=== PATIENT | female | born 1995 | race Caucasian/White ===

== ENCOUNTER 2019-08-09 15:29 | Emergency (ER) | payer MEDICAID, OTHER ==
[~2019-08-09] VITALS: Ht 170.2 cm; Wt 72.0 kg
[~2019-08-09 15:29] MED LIST: NO HOME MEDS
[2019-08-09 16:02] LABS: URINE HCG NEGATIVE (NEG)
[2019-08-09 16:10] LABS: CLARITY,URINE SLIGHTLY CLOUDY (Clear); COLOR,URINE YELLOW (Yellow); GLUCOSE, URINE NEGATIVE (Neg); KETONES,URINE NEGATIVE (Neg); LEUKOCYTE ESTERASE ,URINE NEGATIVE (Neg); NITRITES, URINE NEGATIVE (Neg); OCCULT BLOOD,URINE NEGATIVE (Neg); PROTEIN,URINE NEGATIVE (Neg); UROBILINOGEN,URINE 0.2 E.U/dL (0.2-1.0)
[2019-08-09 16:21] LABS: BACTERIA,URINE FEW /HPF (Neg); MUCUS STRANDS FEW /LPF (Neg); RBC,URINE NONE SEEN /HPF (0-2); SQUAMOUS EPITHELIAL CELL,UR MANY /LPF (FEW); UA COLLECTION TYPE CLN CATCH MIDSTREAM; WBC,URINE 0-4 /HPF (0-4)
[2019-08-09] MEDS ORDERED: ketorolac tromethamine 15mg/ml inj. IM ONE (18:05)
[2019-08-09 18:09] VITALS: BP 125/88
[2019-08-09] MEDS ORDERED: CYCL-1 PO (18:35)
[2019-08-09] MEDS ORDERED: IBUP-1984 PO (18:35)
== END 2019-08-09 18:46 | disposition home or self-care (01) ==
LOC: ER 15:29
DX: M54.5 Low back pain (principal); F41.9 Anxiety disorder, unspecified; R35.0 Frequency of micturition; F10.99 Alcohol use, unspecified with unspecified alcohol-induced disorder; F12.90 Cannabis use, unspecified, uncomplicated; R11.0 Nausea; F15.90 Other stimulant use, unspecified, uncomplicated; Z72.89 Other problems related to lifestyle
CPT/HCPCS: 81001; 81025; 96372; 99283; J1885

== ENCOUNTER 2021-08-08 04:20 | Emergency (ER) | payer MEDICAID, OTHER ==
[~2021-08-08] VITALS: Ht 170.2 cm; Wt 74.2 kg
[~2021-08-08 04:20] MED LIST changes: +CYCL-1 PO
[2021-08-08 04:29] VITALS: BP 133/96
[2021-08-08 04:56] LABS: URINE HCG NEGATIVE (NEG)
[2021-08-08 05:50] LABS: CLARITY,URINE CLOUDY (Clear); COLOR,URINE ORANGE (Yellow); UA COLLECTION TYPE CLN CATCH MIDSTREAM
[2021-08-08 05:57] LABS: BACTERIA,URINE FEW /HPF (Neg); RBC,URINE NONE SEEN /HPF (0-2); WBC,URINE TNTC /HPF (0-4)
[2021-08-08 05:58] LABS: MUCUS STRANDS MANY /LPF (Neg); SQUAMOUS EPITHELIAL CELL,UR FEW /LPF (FEW)
[2021-08-08] MEDS ORDERED: CIPR750T14 PO (07:02)
== END 2021-08-08 07:09 | disposition home or self-care (01) ==
LOC: ER 04:20
DX: N39.0 Urinary tract infection, site not specified (principal); F41.9 Anxiety disorder, unspecified; F32.9 Major depressive disorder, single episode, unspecified; F12.10 Cannabis abuse, uncomplicated; F15.10 Other stimulant abuse, uncomplicated; Z79.899 Other long term (current) drug therapy
CPT/HCPCS: 81001; 81025; 87088; 99283

== ENCOUNTER 2022-05-27 20:40 | Emergency (ER) | payer MEDICAID ==
[~2022-05-27] VITALS: Ht 170.2 cm; Wt 75.0 kg
[2022-05-27 20:48] VITALS: BP 122/88
[2022-05-27] MEDS ORDERED: AMIT10TA6 PO ×2 (21:40→21:42)
[2022-05-27] MEDS ORDERED: ketorolac trometh inj. 60 MG/2 ML VIAL IM ONE (21:45)
== END 2022-05-27 21:54 | disposition home or self-care (01) ==
LOC: ER 20:40
DX: G43.909 Migraine, unspecified, not intractable, without status migrainosus (principal); F31.9 Bipolar disorder, unspecified; F12.10 Cannabis abuse, uncomplicated; F15.10 Other stimulant abuse, uncomplicated; Z79.899 Other long term (current) drug therapy
CPT/HCPCS: 96372; 99283; J1885

== ENCOUNTER 2022-12-13 22:30 | Emergency (ER) | payer MEDICAID ==
[~2022-12-13] VITALS: Ht 170.2 cm; Wt 75.0 kg
[~2022-12-13 22:30] MED LIST changes: +AMIT10TA6 PO
[2022-12-13 22:40] VITALS: BP 142/86
[2022-12-14] MEDS ORDERED: ketorolac trometh inj. 60 MG/2 ML VIAL IM ONE (02:40)
== END 2022-12-14 03:03 | disposition home or self-care (01) ==
LOC: ER 22:31
DX: G43.901 Migraine, unspecified, not intractable, with status migrainosus (principal); F12.10 Cannabis abuse, uncomplicated; F15.10 Other stimulant abuse, uncomplicated; F31.9 Bipolar disorder, unspecified; Z79.899 Other long term (current) drug therapy
CPT/HCPCS: 96372; 99283; J1885

== ENCOUNTER 2025-06-23 19:19 | Emergency (ER) | payer MEDICAID ==
[~2025-06-23] VITALS: Ht 170.2 cm; Wt 73.1 kg
[~2025-06-23 19:19] MED LIST changes: +AMIT10TA14 PO; -AMIT10TA6 PO
[2025-06-23] MEDS ORDERED: MUPI22OI30 TP (20:37)
--- NOTE | 2025-06-23 20:40 | Physician Documentation ---
History of Present Illness ~ Chief Complaint: Wound Stated Complaint: KNEE WOUND Time Seen by MD: 20:14 Primary Medical Doctor: [facility] HPI 29-year-old female reports bit by an insect 4-5 days ago to the proximal left tibia. Reports yellow crusty discharge along with mild itching. No obvious abscess, cellulitis or lymphangitis. The wound has a proximally 1 cm in diameter. No restricted range of motion and no tendon irritation inflammation. Tetanus within 5 years?: Yes Medication Reconciliation Allergies: Coded Allergies: No Known Allergies (Unverified , 07/17/22) Scheduled Amitriptyline Hcl (Amitriptyline Hcl), 10 MG PO DAILY Scheduled PRN Cyclobenzaprine* (Cyclobenzaprine*), 1 TABLET PO Q8H PRN for muscle spasms Miscellaneous Medications Home Med List (No Home Medications), (Reported) Past Medical History Past Medical History: Migraine, *RENAL/*, Anxiety, Depression Past Surgical History: noncontributory Alcohol Use: Occasionally Drug Use: marijuana, methamphetamine, other Lives In: Home Occupation: student Physical Exam Vital Signs: Temperature: 97.8, Source: Oral, Heart Rate: 88, Respiratory Rate: 16, BP: 132/87, Pulse Oximetry: 100, Weight: 73.100 Oxygen Flow Rate: 0 General Appearance: alert, WD/WN Cardiovascular: normal peripheral pulses Respiratory: no respiratory distress Extremities: normal inspection, no calf tenderness Extremities Or lymphangitis noted. No pain with flexion or extension of the anterior tibia. No obvious abscess or cellulitis. Skin: warm/dry Skin See HPI Neurologic: oriented x4 Lymphatics: normal inspection Psychiatric: normal mood/affect Progress Results/Orders Results/Orders Orders - HARLEY WHITE PAC Bacitracin Ointment (Bacitracin Ointment (06/23/25 20:35) Vital Signs 06/23/25 19:23 Temp 97.8 Pulse 88 Resp 16 B/P (MAP) 132/87 Pulse Ox 100 O2 Flow Rate 0 Medical Decision Making Additional Comment 29-year-old with a known resolved wound to the proximal tibia secondary to a bug bite likely with secondary infection requiring Bactroban. Received bacitracin the emergency department tonight and Bactroban Rx to pharmacy. No lymphangitis or suspected cellulitis or abscess presentation. Safely discharged in the emergency department. Departure Disposition: HOME / SELF CARE / HOMELESS Impression: Primary Impression: Wound Additional Impression: Insect bite Qualified Codes: S80.862A - Insect bite (nonvenomous), left lower leg, initial encounter; W57.XXXA - Bitten or stung by nonvenomous insect and other nonvenomous arthropods, initial encounter Condition: Stable Discharge Instructions: Insect Bite, Adult Additional Instructions: Please apply topical Bactroban twice daily. Please follow up with your primary care physician and return in the emergency department for further signs of i nfection. Thank you for visiting emergency department [facility]. Referrals: NO PRIMARY CARE PROVIDER (PCP) Prescriptions Mupirocin* (Bactroban*) 22 Gm Tube 1 APPLIC TP BID for 10 Days, #15 GM Prov: HARLEY WHITE PAC 06/23/25 Education Educated: Patient Educated regarding: diagnosis, treatment Signature Scribe Signature: . Attestation: . HARLEY WHITE PAC Jun 23, 2025 20:40
[2025-06-23] MEDS: bacitracin 15gm ointment TP ONE (21:05)
[2025-06-23 21:08] VITALS: BP 130/88; PULSE 86; RESP 18; TEMP 98.6; O2SAT 99
== END 2025-06-23 21:09 | disposition home or self-care (01) ==
LOC: ER 19:19
DX: S80.862A Insect bite (nonvenomous), left lower leg, initial encounter (principal); G43.909 Migraine, unspecified, not intractable, without status migrainosus; F41.9 Anxiety disorder, unspecified; F32.A Depression, unspecified; F12.90 Cannabis use, unspecified, uncomplicated; F15.90 Other stimulant use, unspecified, uncomplicated; F19.90 Other psychoactive substance use, unspecified, uncomplicated; Z79.899 Other long term (current) drug therapy; Z72.89 Other problems related to lifestyle; W57.XXXA Bitten or stung by nonvenomous insect and other nonvenomous arthropods, initial encounter; Y93.89 Activity, other specified; Y92.89 Other specified places as the place of occurrence of the external cause; Y99.8 Other external cause status
CPT/HCPCS: 99283